=== PATIENT | male | born 1970 | race Caucasian/White ===

== ENCOUNTER 2020-09-29 11:09 | Emergency (ER) | payer OTHER ==
--- NOTE | 2020-09-29 11:44 | ER Document Report ---
ED Medical Screen (RME) - General Chief Complaint: Dizziness Stated Complaint: CHEST PAIN Time Seen by Provider: 09/29/20 11:38 Primary Care Provider: FREDRICK HAMILTON MD [Primary Care Provider] - Follow up as needed Notes: Patient is a 50-year-old male presents emergency department with a chief complaint of dizziness and chest pain that started around 10:00 this morning. One of his friends who is a pull over took his blood pressure and it was elevated in the 180s systolic. Patient states that when he is sitting, he does not feel his symptoms, but when standing earlier, he had a symptoms. Exam: S1, S2. Normal rate. I have greeted and performed a rapid initial assessment of this patient. A comprehensive ED assessment and evaluation of the patient, analysis of test results and completion of medical decision making process will be conducted by an additional ED providers. - Related Data Allergies/Adverse Reactions: No Known Allergies Allergy (Verified 09/29/20 11:37) Past Medical History - Social History Frequency of alcohol use: Occasional Physical Exam - Vital signs Vitals: Temp Pulse Resp BP Pulse Ox 98.1 F 72 18 170/97 H 100 09/29/20 11:33 09/29/20 11:33 09/29/20 11:33 09/29/20 11:33 09/29/20 11:33 Course - Vital Signs Vital signs: Temp Pulse Resp BP Pulse Ox 98.1 F 72 18 170/97 H 100 09/29/20 11:33 09/29/20 11:33 09/29/20 11:33 09/29/20 11:33 09/29/20 11:33 Doctor's Discharge - Discharge Referrals: FREDRICK HAMILTON MD [Primary Care Provider] - Follow up as needed
[2020-09-29 12:09] LABS: ABSOLUTE BASOPHILS # (AUTO) 0.1 10^3/uL (0.0-0.2); ABSOLUTE EOSINOPHILS # (AUTO) 0.3 10^3/uL (0.0-0.6); ABSOLUTE LYMPHOCYTES (AUTO) 2.5 10^3/uL (0.5-4.7); ABSOLUTE MONOCYTES (AUTO) 0.8 10^3/uL (0.1-1.4); ABSOLUTE NEUT (AUTO) 6.4 10^3/uL (1.7-8.2); EOSINOPHILS % (AUTO) 2.6 % (0-6); HEMATOCRIT 42.3 % (37.9-51.0); HEMOGLOBIN 14.1 g/dL (13.5-17.0); LYMPHOCYTES % (AUTO) 25.2 % (13-45); MEAN CORPUSCULAR HEMOGLOBIN 28.9 pg (27.0-33.4); MEAN CORPUSCULAR HGB CONC 33.3 g/dL (32.0-36.0); MEAN CORPUSCULAR VOLUME 87 fl (80-97); MONOCYTES % (AUTO) 7.6 % (3-13); PLATELET COUNT 216 10^3/uL (150-450); RED BLOOD COUNT 4.86 10^6/uL (4.35-5.55); SEGMENTED NEUTROPHILS % (AUTO) 63.6 % (42-78); TOTAL CELLS COUNTED % (AUTO) 100 %
[2020-09-29] MEDS ORDERED: ASPIRIN 81 MG TABLET, CHEWABLE PO ONE (12:22)
[2020-09-29 12:29] LABS: ALBUMIN 4.1 g/dL (3.5-5.0); ALKALINE PHOSPHATASE 79 U/L (38-126); ANION GAP 9 (5-19); ASPARTATE AMINO TRANSFERASE 20 U/L (17-59); BILIRUBIN,DIRECT 0.2 mg/dL (0.0-0.4); BILIRUBIN,TOTAL 0.4 mg/dL (0.2-1.3); BLOOD UREA NITROGEN 12 mg/dL (7-20); CALCIUM 9.3 mg/dL (8.4-10.2); CARBON DIOXIDE 26 mmol/L (22-30); CHLORIDE 105 mmol/L (98-107); CREATINE KINASE 114 U/L (55-170); GLUCOSE 100 mg/dL (75-110); TOTAL PROTEIN 7.2 g/dL (6.3-8.2)
--- NOTE | 2020-09-29 12:32 | RADIOLOGY REPORT (SQ) ---
EXAM DESCRIPTION: CHEST 2 VIEWS IMAGES COMPLETED DATE/TIME: 09/29/2020 12:16 pm REASON FOR STUDY: chest pain COMPARISON: None. EXAM PARAMETERS: NUMBER OF VIEWS: two views TECHNIQUE: Digital Frontal and Lateral radiographic views of the chest acquired. RADIATION DOSE: NA LIMITATIONS: none FINDINGS: LUNGS AND PLEURA: No opacities, masses or pneumothorax. No pleural effusion. MEDIASTINUM AND HILAR STRUCTURES: No masses or contour abnormalities. HEART AND VASCULAR STRUCTURES: Heart normal size. No evidence for failure. BONES: No acute findings. HARDWARE: None in the chest. OTHER: No other significant finding. IMPRESSION: NO ACUTE RADIOGRAPHIC FINDING IN THE CHEST. TECHNICAL DOCUMENTATION: JOB ID: [id number] 2010 [employer]- All Rights Reserved Reading location - IP/workstation name: [email or web address]
--- NOTE | 2020-09-29 13:30 | EKG REPORT ---
SEVERITY:- NORMAL ECG - SINUS RHYTHM : Confirmed by: Lyndsey France MD 29-Sep-2020 13:29:41
--- NOTE | 2020-09-29 15:40 | RADIOLOGY REPORT (SQ) ---
EXAM DESCRIPTION: CT HEAD WITHOUT IMAGES COMPLETED DATE/TIME: 09/29/2020 3:31 pm REASON FOR STUDY: headache/dizziness/ hypertension. COMPARISON: None. TECHNIQUE: Axial images acquired through the brain without intravenous contrast. Images reviewed wi th bone, brain and subdural windows. Additional sagittal and coronal reconstructions were generated. Images stored on PACS. All CT scanners at this facility use dose modulation, iterative reconstruction, and/or weight based d osing when appropriate to reduce radiation dose to as low as reasonably achievable (ALARA). [facility]: Dose Right [facility]: CareDose [facility]: Dose Right [facility]: Teradose 4D [facility]: Stayfilm RADIATION DOSE: CT Rad equipment meets quality standard of care and radiation dose reduction techniq ues were employed. CTDIvol: 53.2 mGy. DLP: 1044 mGy-cm. mGy. LIMITATIONS: None. FINDINGS: VENTRICLES: Normal size and contour. CEREBRUM: No masses. No hemorrhage. No midline shift. No evidence for acute infarction. Normal gra y/white matter differentiation. No areas of low density in the white matter. CEREBELLUM: No masses. No hemorrhage. No alteration of density. No evidence for acute infarction. EXTRAAXIAL SPACES: No fluid collections. No masses. ORBITS AND GLOBE: No intra- or extraconal masses. Normal contour of globe without masses. CALVARIUM: No fracture. PARANASAL SINUSES: No fluid or mucosal thickening. SOFT TISSUES: No mass or hematoma. OTHER: No other significant finding. IMPRESSION: NORMAL BRAIN CT WITHOUT CONTRAST. EVIDENCE OF ACUTE STROKE: NO. COMMENT: Quality ID # [id number]: Final reports with documentation of one or more dose reduction techniques (e.g., Automated exposure control, adjustment of the mA and/or kV according to patient size, use of iterative reconstruction technique) TECHNICAL DOCUMENTATION: JOB ID: [id number] 2010 Room [address]- All Rights Reserved Reading location - IP/workstation name: [email or web address]
--- NOTE | 2020-09-29 18:59 | ER Document Report ---
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 Patient states he also had a mild frontal headache and chest pain, but his symptoms are now relieved in the ED. Patient denies any medical or surgical history, and his last check-up was x2 years ago. Denies any ear pain or ringing, and is not on any regular medications. - Related Data Allergies/Adverse Reactions: No Known Allergies Allergy (Verified 09/29/20 11:37) Past Medical History - General Information source: Patient - Social History Smoking Status: Current Every Day Smoker Cigarette use (# per day): Yes Frequency of alcohol use: Occasional Family History: Reviewed & Not Pertinent - Medical History Medical History: Negative Surgical Hx: Negative Review of Systems - Review of Systems Constitutional: No symptoms reported EENT: See HPI. denies: Ear pain Cardiovascular: See HPI, Chest pain, Dizziness Respiratory: No symptoms reported Gastrointestinal: No symptoms reported Genitourinary: No symptoms reported Male Genitourinary: No symptoms reported Musculoskeletal: No symptoms reported Skin: No symptoms reported Hematologic/Lymphatic: No symptoms reported Neurological/Psychological: See HPI, Headaches - frontal -: Yes All other systems reviewed and negative Physical Exam - Vital signs Vitals: Temp Pulse Resp BP Pulse Ox 98.1 F 72 18 170/97 H 100 09/29/20 11:33 09/29/20 11:33 09/29/20 11:33 09/29/20 11:33 09/29/20 11:33 - General General appearance: Appears well, Alert - HEENT Head: Normocephalic, Atraumatic Eyes: Normal Pupils: PERRL Ears: Normal External canal: Other - pink bilateral Tympanic membrane: Serous effusion - bilateral Mucous membranes: Dry Notes: No tenderness with palpation to the frontal and maxillary sinus. - Respiratory Respiratory status: No respiratory distress Chest status: Nontender Breath sounds: Normal Chest palpation: Normal - Cardiovascular Rhythm: Regular Heart sounds: Normal auscultation, S1 appreciated, S2 appreciated Murmur: No - Abdominal Inspection: Obese Distension: No distension Bowel sounds: Normal Tenderness: Nontender - Extremities General upper extremity: Normal inspection, Normal ROM General lower extremity: Normal inspection, Normal ROM. No: Edema - Neurological Neuro grossly intact: Yes Cognition: Normal Orientation: AAOx4 [place] Coma Scale Eye Opening: Spontaneous [place] Coma Scale Verbal: Oriented Dick Coma Scale Motor: Obeys Commands [place] Coma Scale Total: 15 Speech: Normal Cranial nerves: Normal Cerebellar coordination: Normal - heel-mills and finger-nose Motor strength normal: LUE, RUE, LLE, RLE Additional motor exam normals: Equal product manager. No: Pronator drift Sensory: Normal Notes: Normal strength of bilateral lower extremities with a straight leg raise. - Psychological Associated symptoms: Normal affect, Normal mood - Skin Skin Temperature: Warm Skin Moisture: Dry Skin Color: Normal Course - Re-evaluation Re-evalutation: 09/29/20 18:50 Patient resting comfortably at this time. I discussed with patient his lab results as well as his chest x-ray and CT scan of his head and include his EKG and troponin testing. - Vital Signs Vital signs: Temp Pulse Resp BP Pulse Ox 98.1 F 72 23 H 140/126 H 97 09/29/20 11:33 09/29/20 11:33 09/29/20 16:02 09/29/20 16:02 09/29/20 16:02 Patient's blood pressure when I was in the exam room was 157/97. With a normal pulse afebrile pulse ox 97% respiratory rate normal around 18-20. L - Laboratory Result Diagrams: 09/29/20 11:51 09/29/20 11:51 Laboratory results interpreted by me: Lab results shows no acute process. Patient has a troponin negative x2. 09/29/20 18:55 Chest X-Ray 09/29/20 11:42 IMPRESSION: NO ACUTE RADIOGRAPHIC FINDING IN THE CHEST. Head CT 09/29/20 14:11 IMPRESSION: NORMAL BRAIN CT WITHOUT CONTRAST. EVIDENCE OF ACUTE STROKE: NO. Normal brain CT. Normal chest x-ray no acute process. 09/29/20 18:56 09/29/20 11:51 09/29/20 11:51 MCV 87 fl (80-97) 09/29/20 11:51 MCH 28.9 pg (27.0-33.4) 09/29/20 11:51 MCHC 33.3 g/dL (32.0-36.0) 09/29/20 11:51 RDW 14.0 % (11.5-14.0) 09/29/20 11:51 Seg Neutrophils % 63.6 % (42-78) 09/29/20 11:51 Chloride 105 mmol/L (98-107) 09/29/20 11:51 Carbon Dioxide 26 mmol/L (22-30) 09/29/20 11:51 Anion Gap 9 (5-19) 09/29/20 11:51 Est GFR ( Amer) > 60 (>60) 09/29/20 11:51 Glucose 100 mg/dL (75-110) 09/29/20 11:51 Calcium 9.3 mg/dL (8.4-10.2) 09/29/20 11:51 Magnesium 2.0 mg/dL (1.6-2.3) 09/29/20 11:51 Total Bilirubin 0.4 mg/dL (0.2-1.3) 09/29/20 11:51 AST 20 U/L (17-59) 09/29/20 11:51 Alkaline Phosphatase 79 U/L (38-126) 09/29/20 11:51 Total Protein 7.2 g/dL (6.3-8.2) 09/29/20 11:51 Albumin 4.1 g/dL (3.5-5.0) 09/29/20 11:51 09/29/20 09/29/20 09/29/20 11:51 11:51 16:20 Creatine Kinase 114 Troponin I < 0.012 Cancelled 09/29/20 17:19 Creatine Kinase Troponin I < 0.012 Laboratories within normal range. - Diagnostic Test Radiology reviewed: Image reviewed Discharge - Discharge Clinical Impression: Hypertension, Acute otitis media, Labyrinthitis, Sinus headache Condition: Stable Disposition: HOME, SELF-CARE Instructions: Dizziness ([facility]), Labyrinthitis ([facility]), Meclizine ([facility]) Prescriptions: Amoxicillin 1 tab PO TID #30 tab Meclizine HCl [Antivert 25 mg Tablet] 25 mg PO TID PRN #21 tablet PRN Reason: Lisinopril/Hydrochlorothiazide [Lisinopril-Hctz 20-12.5 mg Tab] 1 each PO DAILY 30 Days #30 tablet Forms: Elevated Blood Pressure Referrals: FREDRICK HAMILTON MD [EMERITUS] - Follow up as needed I personally performed the services described in the documentation, reviewed and edited the documentation which was dictated to the scribe in my presence, and it accurately records my words and actions.
[2020-09-29 19:06] VITALS: BP 142/98
== END 2020-09-29 19:06 | disposition home or self-care (01) ==
LOC: ER 11:09
DX: H83.09 Labyrinthitis, unspecified ear (principal); H66.93 Otitis media, unspecified, bilateral; G44.89 Other headache syndrome; R42 Dizziness and giddiness; R07.9 Chest pain, unspecified; F17.210 Nicotine dependence, cigarettes, uncomplicated; I10 Essential (primary) hypertension
CPT/HCPCS: 36415; 70450; 71046; 80053; 82550; 83735; 84484; 85025; 93005; 93010; 99285